=== PATIENT | female | born 1965 | race Caucasian/White ===

== ENCOUNTER 2016-05-19 17:30 | Emergency (ER) | payer BC ==
[2016-05-19] MEDS ORDERED: methylPREDNISolone 125 MG* 2 ML VIAL IV ONE (18:18)
[2016-05-19] MEDS ORDERED: Albuterol/Ipratropium NEB.SOL* Albuterol 2.5 MG/Ipratropium 0.5 MG 3 ML INH ONE (18:18)
[2016-05-19] MEDS ORDERED: NS 0.9% 1000 ML* 1,000 ML IV SCH (18:30)
[2016-05-19 18:38] LABS: Hematocrit 42 % (35-47); Hemoglobin 13.9 g/dl (12.0-16.0); Mean Corpuscular HGB Conc 33 g/dl (31-36); Mean Corpuscular Hemoglobin 29 pg (27-31); Mean Corpuscular Volume 87 fL (80-97); Mean Platelet Volume 9 um3 (7.4-10.4); Red Blood Count 4.89 10^6/ul (4.0-5.4); Red Cell Distribution Width 15 % (10.5-15)
[2016-05-19 18:43] LABS: Add Diff/Slide Review? Slide Review Added; Comments Flag Yes
[2016-05-19] MEDS ORDERED: guaiFENesin/CODIEN 100MG-10MG* 5 ML UDC PO ONE ×2 (18:43→21:35)
[2016-05-19 18:52] LABS: Albumin 4.2 g/dL (3.2-5.2); BUN/Creatinine Ratio 22.6 (8-20); C Reactive Protein 2.67 mg/L (< 5.00); Calcium 9.1 mg/dL (8.6-10.3); EGFR African American 81.7 (>60); EGFR Non-African American 63.6 (>60); Globulin 3.2 g/dL (2-4); Magnesium 2.2 mg/dL (1.9-2.7); Potassium 4.3 mmol/L (3.5-5.0); Total Bilirubin 0.4 mg/dL (0.2-1.0); Total Protein 7.4 g/dL (6.4-8.9)
[2016-05-19 18:54] LABS: Troponin I 0.01 ng/mL (<0.04)
[2016-05-19 19:03] VITALS: BP 140/90
[2016-05-19 19:10] LABS: Urine Bilirubin Negative (Negative); Urine Glucose Negative (Negative); Urine Nitrite Negative (Negative)
[2016-05-19] MEDS ORDERED: Azithromycin TAB* 250 MG PO ONE (19:18)
--- NOTE | 2016-05-19 19:23 | ED ---
Koby Lopez Anna, scribed for Leandro Barber MD on 05/19/16 at 1817 . Respiratory - HPI Summary HPI Summary: Patient is a 51 y/o female coming to [facility] presenting with gradual onset of a constant cough that began two weeks ago. She has additionally experienced hoarse voice, nasal drainage, and SOB on exertion. She has been taking Prednisone for eight days and has used albuterol, neither or which have alleviated the symptoms. Denies edema, history of blood clots, smoking, or use of control pills. Her history is significant for asthma. - History of Current Complaint Chief Complaint: EDUpperRespComplaint Stated Complaint: ASTHMA COMPLAINT/UPPER RESPIRATORY COMPLAINT Time Seen by Provider: 05/19/16 18:03 Hx Obtained From: Patient, Family/[facility] Consultant - accompanied by and daughter Onset/Duration: Gradual Onset, Lasting Days - Allergy/Home Medications Allergies/Adverse Reactions: Allergies Allergy/AdvReac Type Severity Reaction Status Date / Time Sulfa Antibiotics Allergy Unknown Verified 05/19/16 17:32 Reaction Details PMH/Surg Hx/FS Hx/Imm Hx Previously Healthy: Yes Respiratory History: Reports: Hx Asthma Infectious Disease History: No Infectious Disease History: Denies: Traveled Outside the [place] in Last 30 Days - Family History Known Family History: Positive: Hypertension - Hx in Father, Diabetes - Hx in Father, Other - Hx asthma in children - Social History Lives: With Family Alcohol Use: Occasionally Substance Use Type: Reports: None Smoking Status (MU): Never Smoked Tobacco Review of Systems Positive: Nasal Discharge Positive: Shortness Of Breath, Cough Negative: Edema All Other Systems Reviewed And Are Negative: Yes Physical Exam Triage Information Reviewed: Yes Vital Signs On Initial Exam: Initial Vitals Temp Pulse Resp BP Pulse Ox 97.8 F 89 20 148/84 96 05/19/16 17:32 05/19/16 17:32 05/19/16 17:32 05/19/16 17:32 05/19/16 17:32 Vital Signs Reviewed: Yes Appearance: Positive: Well-Appearing, No Pain Distress Skin: Positive: Warm, Skin Color Reflects Adequate Perfusion, Dry Head/Face: Positive: Normal Head/Face Inspection Eyes: Positive: EOMI, BEATRIS ENT: Positive: Normal ENT inspection Neck: Positive: Supple, Nontender Respiratory/Lung Sounds: Positive: Breath Sounds Present, Wheezes - scattered, bilateral, Other - Moderate respiratory distress, dry cough Cardiovascular: Positive: RRR Abdomen Description: Positive: Nontender, Soft Bowel Sounds: Positive: Present Musculoskeletal: Positive: Normal, Strength/ROM Intact Neurological: Positive: Normal, Sensory/Motor Intact, Alert, Oriented to Person Place, Time Psychiatric: Positive: Affect/Mood Appropriate Diagnostics - Vital Signs Vital Signs Temp Pulse Resp BP Pulse Ox 05/19/16 17:32 97.8 F 89 20 148/84 96 - Laboratory Lab Results: Lab Results 05/19/16 05/19/16 05/19/16 Range/Units 18:30 18:30 18:30 WBC 11.0 H (3.5-10.8) 10^3/ul RBC 4.89 (4.0-5.4) 10^6/ul Hgb 13.9 (12.0-16.0) g/dl Hct 42 (35-47) % MCV 87 (80-97) fL MCH 29 (27-31) pg MCHC 33 (31-36) g/dl RDW 15 (10.5-15) % Plt Count 323 (150-450) 10^3/ul MPV 9 (7.4-10.4) um3 Neut % (Auto) 85.3 H (38-83) % Lymph % (Auto) 11.1 L (25-47) % White % (Auto) 2.6 (1-9) % Eos % (Auto) 0.1 (0-6) % Baso % (Auto) 0.9 (0-2) % Absolute Neuts (auto) 9.3 H (1.5-7.7) 10^3/ul Absolute Lymphs (auto) 1.2 (1.0-4.8) 10^3/ul Absolute Monos (auto) 0.3 (0-0.8) 10^3/ul Absolute Eos (auto) 0 (0-0.6) 10^3/ul Absolute Basos (auto) 0.1 (0-0.2) 10^3/ul Absolute Nucleated RBC 0.01 10^3/ul Nucleated RBC % 0.1 INR (Anticoag Therapy) 0.80 L (0.89-1.11) APTT 30.7 (26.0-36.3) seconds Sodium 136 (133-145) mmol/L Potassium 4.3 (3.5-5.0) mmol/L Chloride 101 (101-111) mmol/L Carbon Dioxide 29 (22-32) mmol/L Anion Gap 6 (2-11) mmol/L BUN 21 (6-24) mg/dL Creatinine 0.93 (0.51-0.95) mg/dL Est GFR ( Amer) 81.7 (>60) Est GFR (Non-Af Amer) 63.6 (>60) BUN/Creatinine Ratio 22.6 H (8-20) Glucose 130 H (70-100) mg/dL Lactic Acid (0.5-2.0) mmol/L Calcium 9.1 (8.6-10.3) mg/dL Magnesium 2.2 (1.9-2.7) mg/dL Total Bilirubin 0.40 (0.2-1.0) mg/dL AST 15 (13-39) U/L ALT 14 (7-52) U/L Alkaline Phosphatase 93 (34-104) U/L Total Creatine Kinase 121 (10-223) U/L CK-MB (CK-2) 2.2 (0.6-6.3) ng/mL Troponin I 0.01 (<0.04) ng/mL C-Reactive Protein 2.67 (< 5.00) mg/L Total Protein 7.4 (6.4-8.9) g/dL Albumin 4.2 (3.2-5.2) g/dL Globulin 3.2 (2-4) g/dL Albumin/Globulin Ratio 1.3 (1-3) Lipase 18 (11.0-82.0) U/L TSH Pending Urine Color Urine Appearance Urine pH (5-9) Ur Specific Victor (1.010-1.030) Urine Protein (Negative) Urine Ketones (Negative) Urine Blood (Negative) Urine Nitrate (Negative) Urine Bilirubin (Negative) Urine Urobilinogen (Negative) Ur Leukocyte Esterase (Negative) Urine Glucose (Negative) 05/19/16 05/19/16 Range/Units 18:30 18:55 WBC (3.5-10.8) 10^3/ul RBC (4.0-5.4) 10^6/ul Hgb (12.0-16.0) g/dl Hct (35-47) % MCV (80-97) fL MCH (27-31) pg MCHC (31-36) g/dl RDW (10.5-15) % Plt Count (150-450) 10^3/ul MPV (7.4-10.4) um3 Neut % (Auto) (38-83) % Lymph % (Auto) (25-47) % White % (Auto) (1-9) % Eos % (Auto) (0-6) % Baso % (Auto) (0-2) % Absolute Neuts (auto) (1.5-7.7) 10^3/ul Absolute Lymphs (auto) (1.0-4.8) 10^3/ul Absolute Monos (auto) (0-0.8) 10^3/ul Absolute Eos (auto) (0-0.6) 10^3/ul Absolute Basos (auto) (0-0.2) 10^3/ul Absolute Nucleated RBC 10^3/ul Nucleated RBC % INR (Anticoag Therapy) (0.89-1.11) APTT (26.0-36.3) seconds Sodium (133-145) mmol/L Potassium (3.5-5.0) mmol/L Chloride (101-111) mmol/L Carbon Dioxide (22-32) mmol/L Anion Gap (2-11) mmol/L BUN (6-24) mg/dL Creatinine (0.51-0.95) mg/dL Est GFR ( Amer) (>60) Est GFR (Non-Af Amer) (>60) BUN/Creatinine Ratio (8-20) Glucose (70-100) mg/dL Lactic Acid 1.2 (0.5-2.0) mmol/L Calcium (8.6-10.3) mg/dL Magnesium (1.9-2.7) mg/dL Total Bilirubin (0.2-1.0) mg/dL AST (13-39) U/L ALT (7-52) U/L Alkaline Phosphatase (34-104) U/L Total Creatine Kinase (10-223) U/L CK-MB (CK-2) (0.6-6.3) ng/mL Troponin I (<0.04) ng/mL C-Reactive Protein (< 5.00) mg/L Total Protein (6.4-8.9) g/dL Albumin (3.2-5.2) g/dL Globulin (2-4) g/dL Albumin/Globulin Ratio (1-3) Lipase (11.0-82.0) U/L TSH Urine Color Straw Urine Appearance Clear Urine pH 7.0 (5-9) Ur Specific Victor 1.010 (1.010-1.030) Urine Protein Negative (Negative) Urine Ketones Negative (Negative) Urine Blood Negative (Negative) Urine Nitrate Negative (Negative) Urine Bilirubin Negative (Negative) Urine Urobilinogen Negative (Negative) Ur Leukocyte Esterase Negative (Negative) Urine Glucose Negative (Negative) Result Diagrams: 05/19/16 18:30 05/19/16 18:30 Lab Statement: Any lab studies that have been ordered have been reviewed, and results considered in the medical decision making process. Disposition - Course Assessment/Plan: Disposition pending at shift change, stable. - Diagnoses Provider Diagnoses: Asthma, Bronchitis Discharge - Discharge Plan Condition: Stable Disposition: HOME Prescriptions: Azithromycin TAB* [Zithromax TAB (Z-IAN) 250 mg #6 tabs] 250 mg PO DAILY #4 tab guaiFENesin/CODIEN 100MG-10MG* [Robitussin AC 100Mg-10Mg*] 10 ml PO Q4H PRN # 120 ml MDD 60 PRN Reason: Cough predniSONE TAB* [Deltasone TAB*] 40 mg PO DAILY #8 tab Patient Education Materials: Asthma (ED), Bronchospasm (ED), Acute Bronchitis ( ED) Referrals: Vidhi Hanks, [employer]NALY[employer] [Primary Care Provider] - Additional Instructions: FOLLOW UP WITH YOUR DOCTOR. RETURN TO THE EMERGENCY DEPARTMENT FOR ANY WORSENING OF YOUR CONDITION OR QUESTIONS OR CONCERNS. The documentation as recorded by the Koby dumont Anna accurately reflects the service I personally performed and the decisions made by me, Leandro Barber MD.
--- NOTE | 2016-05-19 19:26 | RAD ---
Indication: Shortness of breath. 2 views of the chest demonstrate no mediastinal shift. Heart is of normal size and configuration. Lung lane demonstrate no pleural fluid, pneumonia or pneumothorax. IMPRESSION: No active cardiopulmonary disease is noted.
[2016-05-19 19:33] LABS: TSH (Thyroid Stimulating Horm) 1.97 mcIU/mL (0.34-5.60)
--- NOTE | 2016-05-19 21:28 | ED ---
jona Lopez Timothy, nain for Steven Mascorro on 05/19/16 at 2006 . Progress - Progress Note Progress Note: Marlys Fuentes is a 51 yo female presenting to [facility] with persistent cough, hoarse voice, post nasal drip, and SOB on exertion for the past week. Her MHx includes asthma. - EKG/XRAY/CT EKG: NSR - 2003: NSR @ 77 BPM, no acute changes Comments: NSR @ 77 BPM, no acute changes XRAY: chest - IMPRESSION: No active cardiopulmonary disease is noted. Re-Evaluation - Re-Evaluation First Eval Re-Evaluation Time: 20:15 Change: Unchanged Comment: Pt is still coughing Course/Dx - Course Course Of Treatment: Marlys Fuentes is a 51 yo female presenting to [facility] with cough and SOB. After review of her negative CXR, normal EKG, and other lab work , she will be discharged home. - Diagnoses Provider Diagnoses: Exacerbation of asthma, Cough - Provider Notifications Discussed Care Of Patient With: 2120 - Dr. Shell (hospitalist) - discussed Pt condition, recommends discharge of Pt. Instructed by Provider To: Other - discharge The documentation as recorded by the jona dumont Timothy accurately reflects the service I personally performed and the decisions made by , Steven Mascorro.
--- NOTE | 2016-05-20 01:38 | CONS ---
CONSULTATION REPORT: DATE OF CONSULT: 05/19/16 - EMERGENCY DEPT CHIEF COMPLAINT: Cough. HISTORY OF PRESENT ILLNESS: The patient is a 51-year-old woman who said she developed a URI about 1 week ago, went to her primary care physician's office. Apparently, she was wheezing at that time and was placed on steroids, Tessalon Perles, and antibiotic. The wheezing improved as did her shortness of breath, but her cough did not. She currently has no chest pain and no chest tightness. She has no shortness of breath, but just the cough that is nonproductive. The patient does not wish to be admitted, but wants her cough improved. PAST MEDICAL HISTORY: Significant for asthma. ALLERGIES: She is allergic to SULFA drugs. MEDICATIONS: Her only medication is prednisone, which she is finishing up a tapering dose from Vidhi Hanks and Tessalon Perles. FAMILY HISTORY: Mother is alive at 73. Father is alive at 72, hypertension, diabetes. SOCIAL HISTORY: No tobacco, occasional alcohol, no recreational drug use. 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 She is with 6 children. REVIEW OF SYSTEMS: A 14-point review of systems was completed with the patient. All pertinent positives and negatives are in the history of present illness, otherwise it is negative. PHYSICAL EXAMINATION: A very pleasant woman, lying in bed, in no acute distress. Vital Signs: Blood pressure is 140/90, pulse ox 91%, respiratory rate 16 breaths per minute, heart rate 82 beats per minute, temperature 98.2 degrees. HEENT: Normocephalic, atraumatic. Pupils equal, round and reactive to light. Moist mucous membranes. Neck is supple. No JVD, bruits, palpable thyroid, or lymphadenopathy. Chest: Clear to auscultation and percussion bilaterally. Cardiovascular Exam: S1, S2 appreciated. Regular rate and rhythm. Abdomen Exam: Positive bowel sounds in all 4 quadrants. Soft, nontender, nondistended. No hepatosplenomegaly. Extremities: No cyanosis, clubbing or edema. +2 peripheral pulses bilaterally. Neurologic: Alert and oriented x3. Moves all extremities. Skin: No rashes or abnormalities. DIAGNOSTIC STUDIES/LAB DATA: White count 11.0, hemoglobin 13.9, hematocrit 42, platelets of 323. Sodium was 136, potassium 4.3, chloride 101, CO2 29, BUN is 21, creatinine 0.93, glucose 130. Urinalysis unremarkable. Flu swab is negative. Chest x-ray was interpreted by Radiology as no acute cardiopulmonary disease is noted. EKG shows normal sinus rhythm at 77 beats per minute, normal axis, no acute ST-T wave changes. ASSESSMENT AND PLAN: Asthma exacerbation, upper respiratory infection. The patient only with the cough now, I do not see her needing admission to this hospital. I think she would actually get sicker here. She has got no wheezing , no shortness of breath. She is sating 98% on room air. I would add Robitussin-AC for her cough, but I would discharge her, told her to drink plenty of fluids and tincture of time would probably be her best treatment. TIME SPENT: Over 65 minutes were spent on this consult; more than 40 minutes were spent in direct [id number] contact with the patient evaluation, physical exam, and coordination of care. Thank you much for this consult. CC: Vidhi Hanks NP* [id number]/ETELVINA #: [id number] SANDRA
== END 2016-05-19 22:30 | disposition home or self-care (01) ==
LOC: ED 17:30
DX: J45.901 Unspecified asthma with (acute) exacerbation (principal); R05 Cough
CPT/HCPCS: 36415; 71020; 80053; 81003; 82550; 82553; 83605; 83690; 83735; 84443; 84484; 85025; 85610; 85730; 86140; 87502; 93005; 94640; 94760; 96374; 99284; A9270-GY; J2930

== ENCOUNTER 2016-07-20 16:36 | Emergency (ER) | payer BC ==
--- NOTE | 2016-07-20 20:36 | ED ---
Lower Extremity - HPI Summary HPI Summary: Patient was seen at [address] [place] [address] this morning after falling off a chair and sustaining an injury of the ankle and great toe. She was diagnosed with an ankle sprain, wrapped and given a boot. In the afternoon, they called her back stating they incidentally found a great toe dislocation as well. She was told to go see a specialist or go to the ED. Provider called [facility] to obtain xrays and inquire about the need for a specialist. Maldonado, from [facility] explained to her she could have gone to ED or specialist but did not mention she was able to return to . Patient is upset on arrival. Provider ordered new xrays as the toe dislocation is unable to be visualized on the xray. Foot xray was ordered d /t 4th and 5th metatarsal pain as well. Patient explained digital block or manipulation without pain control. Patient prefers manipulation without anesthesia. - History of Current Complaint Chief Complaint: EDExtremityLower Stated Complaint: SENT FROM [facility]/LEFT FOOT INJURY Time Seen by Provider: 07/20/16 19:44 Hx Obtained From: Patient Mechanism Of Injury: Fall From Height Of: - chair Onset of Pain: Immediate Onset/Duration: Hours Severity Initially: Moderate Severity Currently: Moderate Pain Intensity: 6 Pain Scale Used: 0-10 Numeric Timing: Constant Location: Is Discrete @ - left great toe and left ankle Character Of Pain: Sharp Associated Signs And Symptoms: Positive: Negative Aggravating Factor(s): Standing, Ambulation Alleviating Factor(s): Rest Able to Bear Weight: No - Risk Factors Gout Risk Factors: Negative DVT Risk Factors: Negative Septic Arthritis Risk Factor: Negative - Allergies/Home Medications Allergies/Adverse Reactions: Allergies Allergy/AdvReac Type Severity Reaction Status Date / Time Levofloxacin [From Levaquin] Allergy Joint Pain Verified 07/20/16 19:21 Sulfa Antibiotics Allergy Unknown Verified 05/19/16 17:32 Reaction Details PMH/Surg Hx/FS Hx/Imm Hx Previously Healthy: Yes Respiratory History: Reports: Hx Asthma - Immunization History Hx Pertussis Vaccination: No Immunizations Up to Date: No Infectious Disease History: No Infectious Disease History: Denies: Traveled Outside the [place] in Last 30 Days - Family History Known Family History: Positive: Hypertension - Hx in Father, Diabetes - Hx in Father, Other - Hx asthma in children - Social History Occupation: Employed Full-time Lives: With Family Alcohol Use: Occasionally Hx Substance Use: No Substance Use Type: Reports: None Hx Tobacco Use: No Smoking Status (MU): Never Smoked Tobacco Do You Chew or Dip Tobacco: No Have You Chewed or Dipped Tobacco in the LAST YEAR: No Review of Systems Constitutional: Negative Eyes: Negative Cardiovascular: Negative Respiratory: Negative Positive: Arthralgia - pain in ankle, 1st, 4th and 5th metatarsals, Myalgia Skin: Negative Neurological: Negative Psychological: Normal All Other Systems Reviewed And Are Negative: Yes Physical Exam Triage Information Reviewed: Yes Vital Signs On Initial Exam: Initial Vitals Temp Pulse Resp BP Pulse Ox 97.8 F 82 18 158/85 100 07/20/16 16:40 07/20/16 16:40 07/20/16 16:40 07/20/16 16:40 07/20/16 16:40 Vital Signs Reviewed: Yes Appearance: Positive: Well-Appearing, No Pain Distress, Well-Nourished Skin: Positive: Warm, Skin Color Reflects Adequate Perfusion Head/Face: Positive: Normal Head/Face Inspection Eyes: Positive: Normal, BEATRIS, Conjunctiva Clear Neck: Positive: Supple Respiratory/Lung Sounds: Positive: Clear to Auscultation, Breath Sounds Present Cardiovascular: Positive: Normal, RRR Musculoskeletal: Positive: Pain @ - 1st, 4th, and 5th metatarsals, Other - pain in left ankle, wrapped from [facility] Neurological: Positive: Speech Normal Psychiatric: Positive: Normal AVPU Assessment: Alert - Mari Coma Scale Best Eye Response: 4 - Spontaneous Best Motor Response: 6 - Obeys Commands Best Verbal Response: 5 - Oriented Diagnostics - Vital Signs Vital Signs Temp Pulse Resp BP Pulse Ox 07/20/16 19:19 98.1 F 79 18 132/80 97 07/20/16 17:59 98.4 F 82 18 123/77 99 07/20/16 16:40 97.8 F 82 18 158/85 100 - Laboratory Lab Statement: Any lab studies that have been ordered have been reviewed, and results considered in the medical decision making process. Lower Extremity Course/Dx - Course Course Of Treatment: Patient told to come here as a 1st metatarsal dislocation on the left foot was found after patient was discharged. Maldonado, from [facility] explained to her she could have gone to ED or specialist but did not mention she was able to return to . Patient is upset on arrival. Provider ordered new xrays as the toe dislocation is unable to be visualized on the xray. Foot xray was ordered d/t 4th and 5th metatarsal pain as well. Patient explained digital block or manipulation without pain control. Patient prefers manipulation without anesthesia. - Diagnoses Differential Diagnosis/HQI/PQRI: Positive: Contusion, Dislocation, Fracture ( Closed), Fracture (Open) Provider Diagnoses: Toe dislocation Discharge - Discharge Plan Condition: Stable Disposition: HOME Prescriptions: HYDROcodone/ACETAMIN 5-325 MG* [[place] 5-325 TAB*] 1 tab PO Q4H PRN #20 tab MDD 6 PRN Reason: Pain Forms: *Work Release Referrals: Breezy Lara MD [Medical Doctor] - Vidhi Hanks NP [Primary Care Provider] - Additional Instructions: Dx: Toe dislocation Continue to wear the boot until follow up with ortho Ibuprofen 600mg three times daily for pain For pain not well controlled with ibuprofen, you may use the NORCO as prescribed. Do not drive with this medication. Call Dr. Lara's office tomorrow morning.
[2016-07-20] MEDS ORDERED: HYDROcodone/ACETAMIN 5-325 MG* 1 TAB PO ONE ×2 (20:41→23:56)
--- NOTE | 2016-07-20 20:57 | RAD ---
INDICATION: Dislocation of the fifth toe of the left foot. TECHNIQUE: 4 views of the left foot were obtained. FINDINGS: There is lateral subluxation of the middle phalanx of the fifth toe relative to the proximal phalanx. The bones are otherwise in normal alignment. No fracture is seen. IMPRESSION: LATERAL SUBLUXATION OF THE MIDDLE PHALANX OF THE FIFTH TOE, NO FRACTURE IS SEEN.
--- NOTE | 2016-07-20 22:26 | RAD ---
INDICATION: Left fifth toe subluxation status post reduction. COMPARISON: Comparison is made with a prior x-ray study of the left foot obtained earlier today. TECHNIQUE: 2 views of the left fifth toe were obtained. FINDINGS: There is lateral subluxation at the proximal interphalangeal joint with the middle phalanx subluxed lateral relative to the proximal phalanx which appears unchanged from the prior study. No fracture is seen. IMPRESSION: LATERAL SUBLUXATION OF THE MIDDLE PHALANX, UNCHANGED.
[2016-07-20] MEDS ORDERED: HYDROcodone/ACETAMIN 5-325 MG* 1 TAB ONE (23:58)
[2016-07-21 00:12] VITALS: BP 121/74
== END 2016-07-21 00:11 | disposition home or self-care (01) ==
LOC: ED 16:36
DX: S93.105A Unspecified dislocation of left toe(s), initial encounter (principal); W19.XXXA Unspecified fall, initial encounter; Y93.9 Activity, unspecified; Y92.9 Unspecified place or not applicable; Y99.9 Unspecified external cause status
CPT/HCPCS: 99282